=== PATIENT | female | born 1995 | race Caucasian/White ===

== ENCOUNTER → 2023-05-27 07:34 | Outpatient (REF) | payer OTHER, SELFPAY | LOC: PNTC 07:34 | PROVIDERS: ATTENDING PHYSICIAN Obstetrics & Gynecology | DX: O09.819 Supervision of pregnancy resulting from assisted reproductive technology, unspecified trimester (principal) | CPT/HCPCS: 76811 ==

== ENCOUNTER → 2023-07-06 07:00 | Outpatient (REF) | payer OTHER, SELFPAY | LOC: PNTC 07:00 | PROVIDERS: ATTENDING PHYSICIAN Obstetrics & Gynecology | DX: O09.819 Supervision of pregnancy resulting from assisted reproductive technology, unspecified trimester (principal); O99.210 Obesity complicating pregnancy, unspecified trimester | CPT/HCPCS: 76816 ==

== ENCOUNTER → 2023-07-21 11:58 | Outpatient (REF) | payer OTHER, SELFPAY | LOC: PNTC 11:58 | PROVIDERS: ATTENDING PHYSICIAN Obstetrics & Gynecology | DX: Z29.13 Encounter for prophylactic Rho(D) immune globulin (principal) | CPT/HCPCS: 36415; 86850; 86900; 86901; J2790 ==

== ENCOUNTER → 2023-08-13 06:51 | Outpatient (REF) | payer OTHER, SELFPAY | LOC: PNTC 06:51 | PROVIDERS: ATTENDING PHYSICIAN Obstetrics & Gynecology | DX: O99.210 Obesity complicating pregnancy, unspecified trimester (principal); O09.819 Supervision of pregnancy resulting from assisted reproductive technology, unspecified trimester | CPT/HCPCS: 76816 ==

== ENCOUNTER 2023-08-24 08:26 | Observation (INO) | payer OTHER, SELFPAY ==
[2023-08-24 08:34] VITALS: BP 116/61; BMI 35.2
== END 2023-08-24 10:01 | disposition home or self-care (01) ==
LOC: LDRP 08:26
PROVIDERS: ADMITTING PHYSICIAN Obstetrics & Gynecology
DX: O36.8130 Decreased fetal movements, third trimester, not applicable or unspecified (principal); Z3A.33 33 weeks gestation of pregnancy
CPT/HCPCS: G0378

== ENCOUNTER → 2023-09-14 06:56 | Outpatient (REF) | payer OTHER, SELFPAY | LOC: PNTC 06:56 | PROVIDERS: ATTENDING PHYSICIAN Obstetrics & Gynecology | DX: O99.210 Obesity complicating pregnancy, unspecified trimester (principal); O09.819 Supervision of pregnancy resulting from assisted reproductive technology, unspecified trimester | CPT/HCPCS: 59025; 76816 ==

== ENCOUNTER → 2023-09-22 09:54 | Outpatient (REF) | payer OTHER, SELFPAY | LOC: PNTC 09:54 | PROVIDERS: ATTENDING PHYSICIAN Obstetrics & Gynecology | DX: O99.210 Obesity complicating pregnancy, unspecified trimester (principal); O09.819 Supervision of pregnancy resulting from assisted reproductive technology, unspecified trimester | CPT/HCPCS: 76815 ==

== ENCOUNTER → 2023-09-28 06:56 | Outpatient (REF) | payer OTHER, SELFPAY | LOC: PNTC 06:56 | PROVIDERS: ATTENDING PHYSICIAN Obstetrics & Gynecology | DX: O99.210 Obesity complicating pregnancy, unspecified trimester (principal) | CPT/HCPCS: 59025; 76815 ==

== ENCOUNTER → 2023-10-05 06:46 | Outpatient (REF) | payer OTHER, SELFPAY | LOC: PNTC 06:46 | PROVIDERS: ATTENDING PHYSICIAN Obstetrics & Gynecology | DX: O99.210 Obesity complicating pregnancy, unspecified trimester (principal); O09.819 Supervision of pregnancy resulting from assisted reproductive technology, unspecified trimester | CPT/HCPCS: 59025; 76816 ==

== ENCOUNTER 2023-10-06 19:42 | Inpatient (IN) | payer OTHER, SELFPAY ==
[2023-10-06 19:49] VITALS: BP 125/73; BMI 35.0
[2023-10-06 20:12] LABS: % Basophils 0.2 % (0-2); % Eosinophils 1.2 % (0-6); % Immature Granulocytes 0.3 % (0-0.5); % Lymphocytes 23.4 % (20.5-51.1); % Monocytes 6.7 % (1.7-9.3); % Neutrophils 68.2 % (42.2-75.2); Absolute Eosinophils 0.1 10^3/uL (0-0.7); Absolute Lymphocytes 2.2 10^3/uL (1.2-3.4); Absolute Monocytes 0.6 10^3/uL (0.1-0.6); Absolute Neutrophils 6.4 10^3/uL (1.4-6.5); Hematocrit 33.3 % (37.0-47.0); Hemoglobin 11.9 g/dL (12.0-16.0); Mean Corp Hgb Conc. 35.7 g/dL (33.0-37.0); Mean Corpuscular Volume 89.5 fL (81.0-99.0); Mean Platelet Volume 10.5 fL (7.4-10.4); Nucleated Red Blood Cells % 0 %; Platelet Count 217 10^3/uL (130-400); Red Blood Cell Count 3.72 10^6/uL (4.20-5.40); Red Cell Dist. Width 13.2 % (11.5-14.5); White Blood Cell Count 9.4 10^3/uL (4.8-10.8)
[2023-10-06] MEDS: LR 1000 IV (20:15)
[2023-10-06] MEDS: CYTOTEC 25 MICROGRAM VAG (20:15)
[2023-10-06] MEDS: CYTOTEC 50 MICROGRAM PO (23:53)
[2023-10-07] MEDS: CYTOTEC 50 MICROGRAM PO (03:54)
[2023-10-07] MEDS: PITOCIN 30 UNITS/NSS 500 ML IV (08:42)
[2023-10-07] MEDS: SUBLIMAZE 100 MCG EPIDURAL (10:41)
[2023-10-07] MEDS: FENTANYL/BUPIVACAINE 100 EPIDURAL (10:42)
[2023-10-07] MEDS: METHERGINE INJECTION 0.200000000000000011 MG IM (14:03)
[2023-10-07] MEDS: ANCEF 10 IV (14:09)
[2023-10-07] MEDS: ZOFRAN 4 MG IV (14:14)
[2023-10-07] MEDS: TRANEXAMIC ACID 100 IV (14:25)
[2023-10-07] MEDS: MOTRIN 600 MG PO (21:34)
[2023-10-07] MEDS: TYLENOL 650 MG PO (21:34)
[2023-10-08] MEDS: MOTRIN 600 MG PO ×3 (04:18→17:54)
[2023-10-08] MEDS: TYLENOL 650 MG PO ×3 (04:18→17:54)
[2023-10-08 04:33] LABS: Hematocrit 21.3 % (37.0-47.0)
[2023-10-08 04:43] LABS: Hemoglobin 7.6 g/dL (12.0-16.0)
[2023-10-08] MEDS: FEOSOL 325 MG PO ×2 (08:51→20:47)
[2023-10-08] MEDS: SENOKOT-S 1 TABLET PO (08:51)
[2023-10-08] MEDS: PRENATAL PLUS 1 TABLET PO (08:51)
[2023-10-08] MEDS: HYPERRHO S-D 1500 UNIT IM (08:53)
[2023-10-09] MEDS: MOTRIN 600 MG PO ×2 (03:19→09:03)
[2023-10-09] MEDS: TYLENOL 650 MG PO (03:19)
[2023-10-09] MEDS: FEOSOL 325 MG PO (09:03)
[2023-10-09] MEDS: SENOKOT-S 1 TABLET PO (09:03)
[2023-10-09] MEDS: PRENATAL PLUS 1 TABLET PO (09:03)
[2023-10-09 14:39] LABS: Syphilis/T. pallidum Ab Reflex Negative (Negative)
== END 2023-10-09 12:53 | disposition home or self-care (01) | DRG 806 ==
LOC: LDRP 19:42
PROVIDERS: Obstetrics & Gynecology; ADMITTING PHYSICIAN Obstetrics & Gynecology
PROC: 3E0P7VZ Introduction of Hormone into Female Reproductive, Via Natural or Artificial Opening (ICD-10-PCS; 2023-10-06)
PROC: 0KQM0ZZ Repair Perineum Muscle, Open Approach (ICD-10-PCS; 2023-10-07)
PROC: 10E0XZZ Delivery of Products of Conception, External Approach (ICD-10-PCS; 2023-10-07)
PROC: 10907ZC Drainage of Amniotic Fluid, Therapeutic from Products of Conception, Via Natural or Artificial Opening (ICD-10-PCS; 2023-10-07)
PROC: 3E0234Z Introduction of Serum, Toxoid and Vaccine into Muscle, Percutaneous Approach (ICD-10-PCS; 2023-10-08)
DX: O36.63X0 Maternal care for excessive fetal growth, third trimester, not applicable or unspecified (principal); O72.0 Third-stage hemorrhage; Z37.0 Single live birth; O72.1 Other immediate postpartum hemorrhage; O70.1 Second degree perineal laceration during delivery; O90.81 Anemia of the puerperium; D64.9 Anemia, unspecified; O26.893 Other specified pregnancy related conditions, third trimester; Z3A.39 39 weeks gestation of pregnancy; Z67.11 Type A blood, Rh negative
CPT/HCPCS: 88307; 85014; 85018; 85025; 85461; 86780; 86850; 86870; 86900; 86901; J2790